=== PATIENT | female | born 1955 | race Two or more races ===

== ENCOUNTER 2017-12-26 12:12 | Observation (INO) | payer OTHER ==
--- NOTE | 2017-12-26 12:20 | PDOC ---
Attending Attestation - HPI HPI: 12/26/17 13:59 The patient is a 61 year old female, with a significant past medical history of [place], blood clots, hypertension and Type II diabetes, who presents to the emergency department with left arm pain for approximately 1 month. The patient describes her pain as sharp, and states it radiates from the left shoulder to her chest and down her left arm. She reports associated numbness and tingling. She reports some shortness of breath, but denies any diaphoresis, palpitations, or lower extremity edema. She reports these symptoms are different from her previous [place]. She denies any fever, chills, headache, dizziness, or lightheadedness. Patient reports she was evaluated at a clinic earlier today for her symptoms, who noted concerning ECG changes. She reports receiving 325 ASA prior to arrival. She denies any recent travel, sick contacts, or trauma. Allergies: NKDA Past Surgical History: Cardiac Cathetarization, stents Social History: Non smoker. No ETOH or recreational drug use. 12/26/17 14:12 - Medical Decision Making 12/26/17 14:10 Documentation prepared by Marko Tenorio, acting as medical videographer for Meaghan Jolly MD. <Marko Tenorio - Last Filed: 12/26/17 14:12> - Resident Resident Name: Fan Romero - ED Attending Attestation I have performed the following: I have examined & evaluated the patient, The case was reviewed & discussed with the resident, I agree w/resident's findings & plan, Exceptions are as noted - Physicial Exam PE: GENERAL: Awake, alert, and fully oriented, in no acute distress. Appears uncomfortable, mildly anxious. HEAD: No signs of trauma EYES: PERRLA, EOMI, sclera anicteric, conjunctiva clear ENT: Auricles normal inspection, hearing grossly normal, nares patent, oropharynx clear without exudates. Moist mucosa NECK: Normal ROM, supple, no lymphadenopathy, JVD, or masses LUNGS: Breath sounds equal, clear to auscultation bilaterally. No wheezes, and no crackles HEART: Tachycardic with normal S1 and S2, no murmurs, rubs or gallops ABDOMEN: Soft, nontender, normoactive bowel sounds. No guarding, no rebound. No masses EXTREMITIES: Normal range of motion, no edema. No clubbing or cyanosis. No cords, erythema, or tenderness NEUROLOGICAL: Cranial nerves II through XII grossly intact. Normal speech, normal gait. Motor and sensation intact. SKIN: Warm, Dry, normal turgor, no rashes or lesions noted. - Medical Decision Making Pt with multiple cardiac risk factors presents with cp, starting just FOOD COOKING MACHINE OPERATOR. She just recently returned from trip to [place] SOB, leg swelling. <Meaghan Jolly - Last Filed: 12/26/17 15:28>
[2017-12-26 12:25] VITALS: BMI 21.1
--- NOTE | 2017-12-26 12:43 | PDOC ---
History of Present Illness - General Stated Complaint: LT ARM PAIN Time Seen by Provider: 12/26/17 12:20 - History of Present Illness Initial Comments: The patient is a 61F with a history of HTN and T2DM who presents with one month of intermittent left arm pain with associated numbness and tingling. The pain is generally sharp, starts in her shoulder and radiates to her chest and down her left arm. She endorses intermittent shortness of breath as well. She denies ever having had this pain before, previous [place], blood clots, or previous cardiac cath/stenting. She denies PALMRE, vision changes, current chest pain, or recent trauma. Denies smoking. She was sent from clinic today with the above complaint and reported concerning ECG changes. She received 325mg ASA before arrival. 12/26/17 12:36 Past History - Past Medical History Allergies/Adverse Reactions: Allergies Allergy/AdvReac Type Severity Reaction Status Date / Time No Known Allergies Allergy Verified 04/01/12 11:22 Home Medications: Ambulatory Orders Amlodipine Besylate [Norvasc] 10 mg PO DAILY 04/01/12 Calcium Carb/Vit D3/Minerals [Calcium 600 + D Tablet] 1 each PO DAILY 04/01/12 Lisinopril [Prinivil] 40 mg PO DAILY 04/01/12 Atorvastatin Ca [Lipitor] 20 mg PO HS 12/26/17 Glyburide/Metformin HCl [Glucovance 2.5-500 mg Tablet] 1 each PO BID 12/26/17 Sitagliptin Phosphate [Januvia] 100 mg PO DAILY 12/26/17 Anemia: No Asthma: No Cancer: No Cardiac Disorders: No CVA: No COPD: No CHF: No Dementia: No Diabetes: Yes (NIDDM) GI Disorders: Yes (ESOPHAGEAL REFLUX) Disorders: No HTN: Yes Hypercholesterolemia: Yes Liver Disease: No Seizures: No Thyroid Disease: No - Surgical History Abdominal Surgery: No Appendectomy: No Cardiac Surgery: No Cholecystectomy: No Lung Surgery: No Neurologic Surgery: No Orthopedic Surgery: No - Suicide/Smoking/Psychosocial Hx Smoking History: Never smoked Hx Alcohol Use: No Drug/Substance Use Hx: No Substance Use Type: None Hx Substance Use Treatment: No Review of Systems - Review of Systems Comments:: Constitutional Symptoms: no fever, no weight loss, no weight gain, no fatigue, no malaise Eyes: no diplopia, no blurred vision, no redness, no loss of vision Ears, Nose, Mouth, Throat: no dysphagia, no odynophagia, no change in hearing, no rhinorrhea Cardiovascular: no current chest pain, +intermittent SOB, no palpitations; +hx of possible L carotid stenosis (not requiring sx) Respiratory: no cough, no hemoptysis Gastrointestinal: no NVD, no BPR, no dark stool, no constipation, no abdominal pain Genitourinary: no dysuria, no hematuria Musculoskeletal: +L shoulder pain, no weakness, trauma, or reduced ROM Integumentary: no rash, no wounds Neurological: +numbness/tingling LUE to shoulder, no weakness, no headache, no dizziness Psychiatric: no anxiety, no depression Endocrine: no polyuria, no polydipsia, no cold or heat intolerance Hematologic/Lymphatic: no bleeding, no bruising, no edema, no blood clots Allergic/Immunologic: no rash, no allergies, no fever, no chills 12/26/17 12:49 12/26/17 16:05 *Physical Exam - Vital Signs Last Vital Signs Temp Pulse Resp BP Pulse Ox 99.3 F 116 H 18 142/83 97 12/26/17 12:22 12/26/17 12:22 12/26/17 12:22 12/26/17 12:22 12/26/17 12:22 - Physical Exam Comments: GENERAL: Awake, alert, and fully oriented, in no acute distress HEAD: No signs of trauma, normocephalic, atraumatic EYES: PERRL, EOMI, sclera anicteric, conjunctiva clear ENT: Hearing grossly normal, nares patent, oropharynx clear without exudates. Moist mucosa NECK: Normal ROM, supple, no lymphadenopathy LUNGS: No distress, speaks full sentences, clear to auscultation bilaterally HEART: Tachycardic and regular rhythm, normal S1 and S2, no murmurs appreciated , peripheral pulses normal and equal bilaterally. ABDOMEN: Soft, nontender, normoactive bowel sounds. No guarding, no rebound. EXTREMITIES : Normal inspection, Normal range of motion, no edema. No clubbing or cyanosis. NEUROLOGICAL: Cranial nerves II through XII grossly intact. Normal speech, normal gait; LUE decreased sensation to light touch compared to RUE, sensation in LUE equal shoulder to wrist, mild difference in sensation hypothenar < thenar in L hand; Strength 5/5 throughout SKIN: Warm, Dry, normal turgor, no rashes or lesions noted 12/26/17 12:53 ED Treatment Course - LABORATORY CBC & Chemistry Diagram: 12/26/17 12:38 12/26/17 12:38 Medical Decision Making - Medical Decision Making The patient is a 61F with a history of HTN and T2DM who presents with 1 month of L shoulder pain that radiates to her chest and down her left arm, associated with LUE numbness/tingling and intermittent dyspnea concerning for ACS. She was sent from clinic where she reportedly had concerning ECG changes and was given 325mg ASA. 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 No prior ECG available for comparison 12/26/17 12:57 Patient's pain improved as well as her numbness/tingling in her LUE, though still present CXR without evidence of PNX, PNA, or mediastinal widening Trop I <0.02 No leukocytosis or anemia Hyperglycemia to 274 without anion gap 12/26/17 13:50 Plan to admit for observation for serial cardiac enzymes Q6H (next due 1829) and exams Will give therapeutic Lvx during stay, 1mg/kg SQ daily D-dimer negative Patient reports pain is improved, denies chest pain, no shortness of breath 12/26/17 16:06 Dispo: Observation for serial enzymes and exams *DC/Admit/Observation/Transfer Diagnosis at time of Disposition: ACS (acute coronary syndrome) - Referrals - Patient Instructions - Post Discharge Activity
[2017-12-26 12:52] LABS: BASO % 0.8 % (0-2.0); EOS % 2.6 % (0-4.5); HEMATOCRIT 43.7 % (32.4-45.2); HEMOGLOBIN 14.8 GM/dL (10.7-15.3); LYMPH % 18.7 % (8-40); MCH 30.6 pg (25.7-33.7); MEAN CELL VOLUME 90.1 fl (80-96); MEAN PLT VOLUME 8.3 fl (7.5-11.1); MONO % 6.6 % (3.8-10.2); NEUT % 71.3 % (42.8-82.8); PLATELET COUNT 346 K/MM3 (134-434); RBC 4.85 M/mm3 (3.60-5.2); RDW 13.1 % (11.6-15.6); WHITE BLOOD COUNT 10.3 K/mm3 (4.0-10.0)
[2017-12-26 13:04] LABS: INR 0.88 (0.82-1.09)
[2017-12-26 13:24] LABS: ALBUMIN 4.5 g/dl (3.4-5.0); ANION GAP 11 (8-16); BILIRUBIN,TOTAL 0.5 mg/dL (0.2-1.0); BLOOD UREA NITROGEN 10 mg/dL (7-18); CALCIUM 9.8 mg/dL (8.5-10.1); CHLORIDE 105 mmol/L (98-107); CO2 24 mmol/L (21-32); CREATININE 0.9 mg/dL (0.55-1.02); GLUCOSE,RANDOM 274 mg/dL (74-106); SGOT/AST 21 U/L (15-37); SGPT/ALT 40 U/L (12-78); SODIUM 140 mmol/L (136-145); TOT PROT 8.4 g/dl (6.4-8.2)
[2017-12-26 13:26] LABS: ALK PHOS 146 U/L (45-117)
[2017-12-26] MEDS ORDERED: ENOXAPARIN NA (PORCINE) 60 MG/0.6 ML DISP.SYRIN SQ SCH (14:45)
[2017-12-26] MEDS ORDERED: ENOXAPARIN NA (PORCINE) 60 MG/0.6 ML DISP.SYRIN SQ ONE (14:47)
--- NOTE | 2017-12-26 18:02 | HP ---
CHIEF COMPLAINT: left shoulder pain PCP: Dr. Shankar Stratton, cardiology HISTORY OF PRESENT ILLNESS: Patient is a 61 year old female with a significant past medical history of hypertension and diabetes mellitus. She presents to the ED today from the clinic for persistent left arm pain that has been going on and off since August 2017 of this year and worsening in the last month. She was sent from clinic today with left shoulder pain and ECG changes. She was given ASA 325mg prior to arrival. Patient states the left arm pain is sharp and starts at her shoulder and radiates to her chest down her left arm. When the pain is severe, she experiences intermittent shortness of breath, no chest pain. She denies any recent trauma, falls or any form of injury to her left shoulder. ER course was notable for: (1) d dimer 427 (2) chest xray no acute pathology (3) troponins negative x 1 (4) given therapeutic Lovenox in ER Recent Travel: traveled to 2 weeks ago PAST MEDICAL HISTORY: PAST SURGICAL HISTORY: Social History: Smoking: denies Alcohol: denies Drugs: denies Family History: Allergies No Known Allergies Allergy (Verified 04/01/12 11:22) HOME MEDICATIONS: Home Medications Medication Instructions Recorded Amlodipine Besylate [Norvasc] 10 mg PO DAILY 04/01/12 Calcium Carb/Vit D3/Minerals 1 each PO DAILY 04/01/12 [Calcium 600 + D Tablet] Lisinopril [Prinivil] 40 mg PO DAILY 04/01/12 Atorvastatin Ca [Lipitor] 20 mg PO HS 12/26/17 Glyburide/Metformin HCl 1 each PO BID 12/26/17 [Glucovance 2.5-500 mg Tablet] Sitagliptin Phosphate [Januvia] 100 mg PO DAILY 12/26/17 PHYSICAL EXAMINATION Vital Signs - 24 hr 12/26/17 12/26/17 12:22 15:18 Temperature 99.3 F Pulse Rate 116 H Pulse Rate [ 81 Apical] Respiratory 18 Rate Blood Pressure 142/83 O2 Sat by Pulse 97 Oximetry (%) GENERAL: Awake, alert, and fully oriented, in no acute distress. HEAD: Normal with no signs of trauma. EYES: Pupils equal, round and reactive to light, extraocular movements intact, sclera anicteric, conjunctiva clear. No lid lag. EARS, NOSE, THROAT: Ears normal, nares patent, oropharynx clear without exudates. Moist mucous membranes. NECK: Normal range of motion, supple without lymphadenopathy, JVD, or masses. LUNGS: Breath sounds equal, clear to auscultation bilaterally. HEART: nsr on burner hand ABDOMEN: Soft, nontender, not distended, normoactive bowel sounds, no guarding, no rebound, no masses. No hepatomegaly or splenomegaly. MUSCULOSKELETAL: limited ROM of left shoulder, pain on palpation of shoulder. No bony deformities or tenderness. No CVA tenderness. UPPER EXTREMITIES: limited ROM of left shoulder, equal strength bilaterally LOWER EXTREMITIES: 2+ pulses, warm, well-perfused. No calf tenderness. No peripheral edema. NEUROLOGICAL: Normal speech PSYCHIATRIC: Cooperative. Good eye contact. Appropriate mood and affect. SKIN: Warm, dry, normal turgor, no rashes or lesions noted, normal capillary refill. Laboratory Results - last 24 hr 12/26/17 12/26/17 12/26/17 12:38 12:38 12:38 WBC 10.3 H RBC 4.85 Hgb 14.8 Hct 43.7 MCV 90.1 MCH 30.6 MCHC 34.0 RDW 13.1 Plt Count 346 MPV 8.3 Absolute Neuts (auto) 7.4 Neutrophils % 71.3 Lymphocytes % 18.7 Monocytes % 6.6 Eosinophils % 2.6 Basophils % 0.8 Nucleated RBC % 0 PT with INR 10.00 INR 0.88 D-Dimer Sodium 140 Potassium 5.0 Chloride 105 Carbon Dioxide 24 Anion Gap 11 BUN 10 Creatinine 0.9 Creat Clearance w eGFR > 60 Random Glucose 274 H Calcium 9.8 Total Bilirubin 0.5 AST 21 ALT 40 Alkaline Phosphatase 146 H Creatine Kinase 81 Troponin I < 0.02 Total Protein 8.4 H Albumin 4.5 12/26/17 14:42 WBC RBC Hgb Hct MCV MCH MCHC RDW Plt Count MPV Absolute Neuts (auto) Neutrophils % Lymphocytes % Monocytes % Eosinophils % Basophils % Nucleated RBC % PT with INR INR D-Dimer 427 Sodium Potassium Chloride Carbon Dioxide Anion Gap BUN Creatinine Creat Clearance w eGFR Random Glucose Calcium Total Bilirubin AST ALT Alkaline Phosphatase Creatine Kinase Troponin I Total Protein Albumin ASSESSMENT/PLAN: Patient is a 61 year old female with a significant past medical history of hypertension and diabetes mellitus. She presents to the ED today from the clinic for persistent left arm pain that has been going on and off since August 2017 of this year and worsening in the last month. She was sent from clinic today with left shoulder pain and ECG changes. She was given ASA 325mg prior to arrival. In the ED she was given Lovenox 60mg. Cardiology Left shoulder pain/rule out ACS Trend troponins, monitor on tele. Noted to have ekg with sinus tachycardia and ST depressions in inferior and lateral leads. Will continue therapeutic Lovenox q 12 hours. Hypertension: continue home meds: Norvasc, Lisinopril Endocrine: Diabetes mellitus: BGMS, Insulin, diabetic diet. fen tolerating PO diabetic diet monitor electrolytes Visit type - Emergency Visit Emergency Visit: Yes ED Registration Date: 12/26/17 Care time: The patient presented to the Emergency Department on the above date and was hospitalized for further evaluation of their emergent condition. - New Patient This patient is new to me today: Yes Date on this admission: 12/28/17 - Critical Care Critical Care patient: No Hospitalist Screening - Colonoscopy Questionnaire Colonoscopy Questionnaire: Colonoscopy Questionnaire - Patient: 50 - 75 years old and never had a screening colonoscopy: Unknown History of colon or rectal polyps, or CA: Unknown History of IBD, Crohn's disease or UC: Unknown History of abdominal radiation therapy as a child: Unknown - Relative: 1 with colon or rectal CA, or polyps at age 60 or younger: Unknown Colon or rectal CA diagnosed at age 45 or younger: Unknown Multiple relatives with colon or rectal CA: Unknown - Outcome: Screening Result: Negative Screen
[2017-12-26] MEDS ORDERED: INSULIN (NOVOLOG) ASPART 100 UNITS/ML 10ML VIAL ONE (18:15)
[2017-12-26] MEDS: INSULIN SLIDING SCALE (NOVOLOG) 1 VIAL SQ SCH ×2 (18:17→23:07)
[2017-12-26] MEDS ORDERED: KETOROLAC TROMETHAMINE 10 MG TABLET PO PRN (18:30)
[2017-12-26] MEDS ORDERED: ACETAMINOPHEN 325 MG TABLET (FP) PO PRN (19:01)
[2017-12-26] MEDS ORDERED: ATORVASTATIN CA 20 MG TABLET (FP) PO SCH (22:00)
[2017-12-27] MEDS ORDERED: KETOROLAC TROMETHAMINE 10 MG TABLET PO SCH
[2017-12-27] MEDS: ENOXAPARIN NA (PORCINE) 60 MG/0.6 ML DISP.SYRIN SQ SCH ×2 (01:31→05:34)
[2017-12-27] MEDS: INSULIN SLIDING SCALE (NOVOLOG) 1 VIAL SQ SCH ×4 (06:07→22:31)
--- NOTE | 2017-12-27 08:35 | PN ---
Progress Note (short form) - Note Progress Note: IMP: 1. HTN/DM 2. Chronic left shoulder pain now with "pins and needle" /Parasthesia left hand 3. Chronic ALVAREZ 4. Abnl ECG, NSST changes REC: 1. ASA/Statin. Add beta kody. 2. Complete SHANAE with 3rd enzyme. Repeat ECG 3. Echo 4. If 3rd enzyme negative, would repeat non-invasive ischemic eval with stress MPI Symptoms are somewhat chronic and atypical for CAD. Consider Neuro eval and imaging of C-spine to explore other possibil. including Cervical Radiculopathy/ Carpal Tunnel etc Full Consult Dictated. Thank you
[2017-12-27 08:55] LABS: BASO % 1.1 % (0-2.0); EOS % 6.7 % (0-4.5); HEMATOCRIT 41.4 % (32.4-45.2); HEMOGLOBIN 14.3 GM/dL (10.7-15.3); LYMPH % 31.6 % (8-40); MCH 31.2 pg (25.7-33.7); MCHC 34.6 g/dl (32.0-36.0); MEAN CELL VOLUME 90.2 fl (80-96); MEAN PLT VOLUME 7.9 fl (7.5-11.1); MONO % 7.5 % (3.8-10.2); NEUT % 53.1 % (42.8-82.8); PLATELET COUNT 313 K/MM3 (134-434); RBC 4.59 M/mm3 (3.60-5.2); RDW 13.4 % (11.6-15.6)
--- NOTE | 2017-12-27 09:02 | PN ---
Physical Exam: SUBJECTIVE: Patient seen and examined at the bedside. Denies chest pain or shortness of breath. left arm pain improving. OBJECTIVE: for a stress test tomorrow, will make NPO at midnight Echo ordered Elevated lipid panel with triglycerides of 996, no abdominal pain, nausea or vomiting Vital Signs Period Temp Pulse Resp BP Sys/Field Pulse Ox Last 24 Hr 97.7 F-99.3 F 78-116 15-20 105-142/65-83 97-98 GENERAL: Awake, alert, and fully oriented, in no acute distress. HEAD: Normal with no signs of trauma. EYES: Pupils equal, round and reactive to light, extraocular movements intact, sclera anicteric, conjunctiva clear. No lid lag. EARS, NOSE, THROAT: Ears normal, nares patent, oropharynx clear without exudates. Moist mucous membranes. NECK: Normal range of motion, supple without lymphadenopathy, JVD, or masses. LUNGS: Breath sounds equal, clear to auscultation bilaterally. HEART: nsr on registered nurse cardiac ABDOMEN: Soft, nontender, not distended, normoactive bowel sounds, no guarding, no rebound, no masses. No hepatomegaly or splenomegaly. MUSCULOSKELETAL: left shoulder discomfort improving, pain on palpation of shoulder. No bony deformities or tenderness. No CVA tenderness. UPPER EXTREMITIES: limited ROM of left shoulder, equal strength bilaterally LOWER EXTREMITIES: 2+ pulses, warm, well-perfused. No calf tenderness. No peripheral edema. NEUROLOGICAL: Normal speech PSYCHIATRIC: Cooperative. Good eye contact. Appropriate mood and affect. SKIN: Warm, dry, normal turgor, no rashes or lesions noted, normal capillary refill. Laboratory Results - last 24 hr 12/26/17 12/26/17 12/26/17 12:38 12:38 12:38 WBC 10.3 H RBC 4.85 Hgb 14.8 Hct 43.7 MCV 90.1 MCH 30.6 MCHC 34.0 RDW 13.1 Plt Count 346 MPV 8.3 Absolute Neuts (auto) 7.4 Neutrophils % 71.3 Lymphocytes % 18.7 Monocytes % 6.6 Eosinophils % 2.6 Basophils % 0.8 Nucleated RBC % 0 PT with INR 10.00 INR 0.88 D-Dimer Sodium 140 Potassium 5.0 Chloride 105 Carbon Dioxide 24 Anion Gap 11 BUN 10 Creatinine 0.9 Creat Clearance w eGFR > 60 POC Glucometer Random Glucose 274 H Calcium 9.8 Total Bilirubin 0.5 AST 21 ALT 40 Alkaline Phosphatase 146 H Creatine Kinase 81 Troponin I < 0.02 Total Protein 8.4 H Albumin 4.5 12/26/17 12/26/17 12/26/17 14:42 18:11 18:26 WBC RBC Hgb Hct MCV MCH MCHC RDW Plt Count MPV Absolute Neuts (auto) Neutrophils % Lymphocytes % Monocytes % Eosinophils % Basophils % Nucleated RBC % PT with INR INR D-Dimer 427 Sodium Potassium Chloride Carbon Dioxide Anion Gap BUN Creatinine Creat Clearance w eGFR POC Glucometer [phone] Random Glucose Calcium Total Bilirubin AST ALT Alkaline Phosphatase Creatine Kinase Cancelled Troponin I Cancelled Total Protein Albumin 12/26/17 12/26/17 12/27/17 20:13 22:00 05:31 WBC RBC Hgb Hct MCV MCH MCHC RDW Plt Count MPV Absolute Neuts (auto) Neutrophils % Lymphocytes % Monocytes % Eosinophils % Basophils % Nucleated RBC % PT with INR INR D-Dimer Sodium Potassium Chloride Carbon Dioxide Anion Gap BUN Creatinine Creat Clearance w eGFR POC Glucometer 184 189 Random Glucose Calcium Total Bilirubin AST ALT Alkaline Phosphatase Creatine Kinase Troponin I < 0.02 Total Protein Albumin 12/27/17 08:45 WBC 7.0 RBC 4.59 Hgb 14.3 Hct 41.4 MCV 90.2 MCH 31.2 MCHC 34.6 RDW 13.4 Plt Count 313 MPV 7.9 Absolute Neuts (auto) 3.7 Neutrophils % 53.1 D Lymphocytes % 31.6 D Monocytes % 7.5 Eosinophils % 6.7 H D Basophils % 1.1 Nucleated RBC % 0 PT with INR INR D-Dimer Sodium Potassium Chloride Carbon Dioxide Anion Gap BUN Creatinine Creat Clearance w eGFR POC Glucometer Random Glucose Calcium Total Bilirubin AST ALT Alkaline Phosphatase Creatine Kinase Troponin I Total Protein Albumin Active Medications Generic Name Dose Route Start Last Admin Trade Name Freq PRN Reason Stop Dose Admin Acetaminophen 650 mg 12/26/17 19:01 12/26/17 23:08 Tylenol - PO 650 mg Q6H PRN Administration PAIN LEVEL 4 - 6 Amlodipine Besylate 5 mg 12/27/17 10:00 Norvasc - PO DAILY ANNELIESE Aspirin 81 mg 12/27/17 10:00 Asa - PO DAILY ANNELIESE Atorvastatin Calcium 20 mg 12/26/17 22:00 12/26/17 23:08 Lipitor - PO 20 mg HS ANNELIESE Administration Insulin Aspart 1 vial 12/26/17 16:30 12/27/17 06:07 Novolog Vial Sliding Scale - SQ 2 unit ACHS ANNELIESE Administration Protocol Ketorolac Tromethamine 10 mg 12/26/17 18:30 Toradol PO 12/31/17 18:29 Q6H PRN PAIN LEVEL 7 - 10 Lisinopril 40 mg 12/27/17 10:00 Prinivil PO DAILY ANNELIESE Metoprolol Succinate 12.5 mg 12/27/17 10:00 Toprol Xl - PO DAILY [facility] ASSESSMENT/PLAN: Patient is a 61 year old female with a significant past medical history of hypertension and diabetes mellitus. She presents to the ED today from the clinic for persistent left arm pain that has been going on and off since August 2017 of this year and worsening in the last month. She was sent from clinic today with left shoulder pain and ECG changes. She was given ASA 325mg prior to arrival. In the ED she was given Lovenox 60mg. Cardiology: Left shoulder pain/rule out ACS: Troponins negative x 3. For stress test and echo tomorrow. On admission, her ekg with sinus tachycardia and ST depressions in inferior and lateral leads. Hypertension: continue home meds: Norvasc, Lisinopril, Toprol xl HLD: Elevated Triglycerides @ 966, elevated lipid panel. Started on Lipitor 80mg and Trilplix 135mg. Patient states she has had elevated triglycerides in the past and was placed on statins. She has since stopped the medications. TSH , amylase and lipase within normal limits. Continue low cholesterol diet. Dietary teaching while inpatient. Endocrine: Diabetes mellitus: elevated BGMS, hmga1c 9.5. Patient to be taught how to use glucometer for home use. She will need close PCP follow up. Outpatient diabetic teaching would benefit her. Appears that she is not following a diabetic diet nor monitoring her blood sugars at home. fen tolerating PO diabetic diet monitor electrolytes prophy: ambulation Visit type - Emergency Visit Emergency Visit: Yes ED Registration Date: 12/26/17 Care time: The patient presented to the Emergency Department on the above date and was hospitalized for further evaluation of their emergent condition. - New Patient This patient is new to me today: No - Critical Care Critical Care patient: No - Discharge Referral Referred to [facility] Med P.C.: No
[2017-12-27 09:27] LABS: ALBUMIN 3.9 g/dl (3.4-5.0); ANION GAP 8 (8-16); BLOOD UREA NITROGEN 10 mg/dL (7-18); CALCIUM 9.2 mg/dL (8.5-10.1); CHLORIDE 101 mmol/L (98-107); CHOLESTEROL 257 mg/dL (50-200); CO2 27 mmol/L (21-32); CREATININE 0.9 mg/dL (0.55-1.02); MAGNESIUM 1.7 mg/dL (1.8-2.4); SGOT/AST 35 U/L (15-37); SGPT/ALT 44 U/L (12-78); SODIUM 136 mmol/L (136-145); TOT PROT 7.6 g/dl (6.4-8.2)
--- NOTE | 2017-12-27 09:27 | CONS ---
DATE OF CONSULTATION: 12/27/2017 Consultation requested by Charley Barragan NP for left arm pain. The patient is a 61-year-old female with a pertinent past medical history of diabetes, hypertension, and hyperlipidemia who was sent to the emergency room from her primary care clinic yesterday for left arm pain. The history was taken in [place]. The patient describes approximately 3 months of chronic left arm and shoulder pain. The pain initially started in her left shoulder and radiated downwards to her elbow. This has now dissipated. She now is experiencing left palm tingling/[id number] sensation. She denies chest pain. She denies exertional chest pain. She does have chronic exertional dyspnea of at least 3 months' duration. She had a stress test approximately 1 year ago, which she states was unremarkable; the results are not currently available for review. She denies palpitations, PND, orthopnea, edema. There is no history of syncope. She denies fevers, chills, cough. There are no other focal neurological deficits. PAST MEDICAL HISTORY: As outlined above and includes diabetes, hypertension, and hyperlipidemia. CURRENT MEDICATIONS: Tylenol 650 p.o. q.6 p.r.n. She was started on therapeutic doses of Lovenox to rule out ACS, which will now be discontinued. Amlodipine 10 mg p.o. daily; aspirin 81 mg p.o. daily; Lipitor 20 mg p.o. daily; insulin; Toradol p.r.n.; Prinivil 40 mg p.o. daily. ALLERGIES: None. FAMILY HISTORY: Patient states that her mother had coronary disease, but does not know the details. SOCIAL HISTORY: Nondrinker, nonsmoker. Lives with her son and [id number]. PHYSICAL EXAMINATION: General: She was alert and oriented, in no acute distress. Vital Signs: Afebrile, temperature 97.7, pulse 78. Telemetry shows sinus rhythm. Blood pressure 107/70, O2 saturation 98 on room air. HEENT: She is anicteric. Neck: Two-plus carotid pulses without bruits. Heart: S1, S2, regular. No murmurs. Chest: Clear to auscultation. Abdomen: Soft, nontender. Extremities: Warm, well-perfused with no edema and 2+ dorsalis pedis pulses. Her 12-lead EKG showed sinus tachycardia at 114 beats/min with inferior and anterior nonspecific ST changes. Chest x-ray was unremarkable. LABORATORIES: CBC showed a white count of 10.3, hematocrit of 43.7, platelets of 346. D-dimer was negative. Chemistry profile showed sodium of 140, potassium of 5, creatinine of 0.9. Normal LFTs. Normal CK. Troponin 0.02 and 0.02; awaiting the 3rd set. IMPRESSION: 1. Hypertension/diabetes. 2. Chronic left shoulder pain, now with "jnza-wih-[id number] sensation in the left palm;" paresthesia, left hand. 3. Chronic dyspnea on exertion. 4. Nonspecific ST changes on ECG while tachycardic. RECOMMENDATIONS: 1. Continue aspirin and statin. Will add low-dose beta kody. Will decrease amlodipine to 5 mg p.o. daily. 2. Complete rule out HI with 3rd enzyme this morning. Repeat ECG. 3. Plan for echocardiogram for assessment of wall motion, ejection fraction, and to rule out pericardial disease. 4. If her 3rd cardiac enzyme is negative, would repeat the noninvasive ischemic evaluation with an exercise nuclear stress test tomorrow morning. Her symptoms are chronic and somewhat atypical for coronary artery disease. Would also consider neurology evaluation and imaging of the C-spine to explore other possibilities, including cervical radiculopathy/carpal tunnel syndrome, etc. With her cardiac risk factors, a repeat ischemic evaluation is warranted as well. Thank you for the consultation. KATY LUCIANO M.D. [id number]
[2017-12-27 09:28] LABS: ALK PHOS 116 U/L (45-117); BILIRUBIN,TOTAL 0.4 mg/dL (0.2-1.0); HDL CHOLESTEROL 28 mg/dL (40-60)
[2017-12-27 09:34] LABS: TRIGLYCERIDES 996 mg/dL (35-160)
[2017-12-27] MEDS ORDERED: amLODIPine BESYLATE 10 MG TABLET (FP) PO SCH (10:00)
[2017-12-27] MEDS ORDERED: ATORVASTATIN CA 80 MG TABLET (FP) PO SCH (10:18)
[2017-12-27] MEDS ORDERED: MAGNESIUM OXIDE 400 MG TABLET (FP) PO ONE (10:36)
[2017-12-27 10:37] LABS: GLUCOSE,RANDOM 340 mg/dL (74-106)
[2017-12-27 10:41] LABS: AMYLASE 43 U/L (25-115)
[2017-12-27 10:43] LABS: LIPASE 231 U/L (73-393)
[2017-12-27] MEDS: amLODIPine BESYLATE 5 MG TABLET (FP) PO SCH (10:43)
[2017-12-27] MEDS: ASPIRIN 81 MG CHEWABLE TABLETS PO SCH (10:43)
[2017-12-27] MEDS: LISINOPRIL 20 MG TABLET (FP) PO SCH (10:43)
[2017-12-27] MEDS: metoPROLOL SUCCINATE 25 MG TAB.SR.24H (FP) PO SCH (10:43)
[2017-12-27] MEDS: FENOFIBRIC ACID 135 MG CAP PO SCH (10:44)
[2017-12-27] MEDS ORDERED: Insulin (LOG) Aspart 100 UNITS/ML VIAL SQ ONE (12:15)
[2017-12-27] MEDS ORDERED: PT OWN MED DRAWER 7, Y5N ONE ×3 (19:20→21:26)
[2017-12-27] MEDS ORDERED: INSULIN (LEVEMIR) 100 UNITS/ML UNITS SQ SCH (22:00)
[2017-12-28 06:18] LABS: EOS % 5.6 % (0-4.5); HEMATOCRIT 40.4 % (32.4-45.2); HEMOGLOBIN 13.8 GM/dL (10.7-15.3); LYMPH % 37.4 % (8-40); MCH 30.8 pg (25.7-33.7); MCHC 34.2 g/dl (32.0-36.0); MEAN CELL VOLUME 89.8 fl (80-96); MEAN PLT VOLUME 8.3 fl (7.5-11.1); MONO % 6.1 % (3.8-10.2); NEUT % 49.9 % (42.8-82.8); PLATELET COUNT 314 K/MM3 (134-434); RBC 4.49 M/mm3 (3.60-5.2); RDW 13.1 % (11.6-15.6); WHITE BLOOD COUNT 9.7 K/mm3 (4.0-10.0)
[2017-12-28] MEDS: INSULIN SLIDING SCALE (NOVOLOG) 1 VIAL SQ SCH ×2 (06:23→15:22)
[2017-12-28 07:04] LABS: ALBUMIN 3.7 g/dl (3.4-5.0); ANION GAP 8 (8-16); BLOOD UREA NITROGEN 15 mg/dL (7-18); CALCIUM 9.2 mg/dL (8.5-10.1); CHLORIDE 104 mmol/L (98-107); CO2 27 mmol/L (21-32); GLUCOSE,RANDOM 164 mg/dL (74-106); MAGNESIUM 1.7 mg/dL (1.8-2.4); POTASSIUM 5.2 mmol/L (3.5-5.1); SODIUM 139 mmol/L (136-145)
[2017-12-28 07:08] LABS: ALK PHOS 94 U/L (45-117); BILIRUBIN,TOTAL 0.6 mg/dL (0.2-1.0); CREATININE 0.8 mg/dL (0.55-1.02); SGOT/AST 32 U/L (15-37); SGPT/ALT 40 U/L (12-78); TOT PROT 7.1 g/dl (6.4-8.2)
--- NOTE | 2017-12-28 08:29 | PN ---
Progress Note, Physician Chief Complaint: feeling better TELE: NSR - Current Medication List Current Medications: Active Medications Acetaminophen (Tylenol -) 650 mg PO Q6H PRN PRN Reason: PAIN LEVEL 4 - 6 Last Admin: 12/26/17 23:08 Dose: 650 mg Amlodipine Besylate (Norvasc -) 5 mg PO DAILY [facility] Last Admin: 12/27/17 10:43 Dose: 5 mg Aspirin (Asa -) 81 mg PO DAILY [facility] Last Admin: 12/27/17 10:43 Dose: 81 mg Atorvastatin Calcium (Lipitor -) 80 mg PO HS [facility] Last Admin: 12/27/17 21:12 Dose: 80 mg Fenofibric Acid (Trilipix -) 135 mg PO DAILY [facility] Last Admin: 12/27/17 10:44 Dose: 135 mg Insulin Aspart (Novolog Vial Sliding Scale -) 1 vial SQ [facility]; Protocol Last Admin: 12/28/17 06:23 Dose: Not Given Insulin Detemir (Levemir Vial) 5 units SQ [facility] Last Admin: 12/27/17 22:31 Dose: Not Given Ketorolac Tromethamine (Toradol) 10 mg PO Q6H PRN PRN Reason: PAIN LEVEL 7 - 10 Stop: 12/31/17 18:29 Lisinopril (Prinivil) 40 mg PO DAILY [facility] Last Admin: 12/27/17 10:43 Dose: 40 mg Metoprolol Succinate (Toprol Xl -) 12.5 mg PO DAILY [facility] Last Admin: 12/27/17 10:43 Dose: 12.5 mg - Objective Vital Signs: Vital Signs Temperature 98.1 F 12/28/17 06:00 Pulse Rate 80 12/28/17 06:00 Respiratory Rate 20 12/28/17 06:00 Blood Pressure 123/72 12/28/17 06:00 O2 Sat by Pulse Oximetry (%) 98 12/27/17 22:00 Constitutional: Yes: No Distress Cardiovascular: Yes: Regular Rate and Rhythm Respiratory: Yes: CTA Bilaterally Gastrointestinal: Yes: Soft Edema: No Neurological: Yes: Alert, Oriented ...Motor Strength: WNL Labs: CBC, BMP 12/28/17 05:30 12/28/17 05:30 INR, PTT INR 0.88 (0.82-1.09) 12/26/17 12:38 Laboratory Tests 0712/26/17 12/27/17 12:38 20:13 08:45 WBC Hgb Plt Count Sodium Potassium BUN Creatinine Total Bilirubin AST ALT Alkaline Phosphatase Troponin I < 0.02 < 0.02 < 0.02 12/28/17 12/28/17 05:30 05:30 WBC 9.7 Hgb 13.8 Plt Count 314 Sodium 139 Potassium 5.2 H BUN 15 Creatinine 0.8 Total Bilirubin 0.6 AST 32 ALT 40 Alkaline Phosphatase 94 D Troponin I - ....Imaging EKG: Image Reviewed Assessment/Plan IMP: 1. HTN/DM/ HL 2. Chronic left shoulder pain now with "pins and needle" /Parasthesia left hand 3. Chronic ALVAREZ 4. Abnl ECG, NSST changes REC: 1. ASA/Statin. Add beta kody. 2. Cardiac enzymes negative. For stress MPI today. 3. Echo 4. Agree with Fenofibrate. Symptoms are somewhat chronic and atypical for CAD. Consider Neuro eval and imaging of C-spine to explore other possibil. including Cervical Radiculopathy/ Carpal Tunnel etc
--- NOTE | 2017-12-28 10:22 | EKG ---
Test Reason : Blood Pressure : / mmHG Vent. Rate : 083 BPM Atrial Rate : 083 BPM P-R Int : 116 ms QRS Dur : 082 ms QT Int : 378 ms P-R-T Axes : 079 008 035 degrees QTc Int : 444 ms NORMAL SINUS RHYTHM NORMAL ECG WHEN COMPARED WITH ECG OF 26-DEC-2017 12:22, NO SIGNIFICANT CHANGE WAS FOUND Confirmed by ABDIEL CHENG MD ([id number]) on 12/28/2017 10:22:18 AM Referred By: Aubrey GARG Confirmed By:ABDIEL CHENG MD
--- NOTE | 2017-12-28 10:34 | EKG ---
Test Reason : Blood Pressure : / mmHG Vent. Rate : 114 BPM Atrial Rate : 114 BPM P-R Int : 124 ms QRS Dur : 078 ms QT Int : 326 ms P-R-T Axes : 075 019 026 degrees QTc Int : 449 ms SINUS TACHYCARDIA NONSPECIFIC ST ABNORMALITY ABNORMAL ECG NO PREVIOUS ECGS AVAILABLE Confirmed by ABDIEL CHENG MD ([id number]) on 12/28/2017 10:34:30 AM Referred By: Confirmed By:ABDIEL CHENG MD
[2017-12-28 15:07] VITALS: BP 120/80; PULSE 88; TEMP 97.7
[2017-12-28] MEDS: ASPIRIN 81 MG CHEWABLE TABLETS PO SCH (15:07)
[2017-12-28] MEDS: amLODIPine BESYLATE 5 MG TABLET (FP) PO SCH (15:07)
[2017-12-28] MEDS: LISINOPRIL 20 MG TABLET (FP) PO SCH (15:09)
[2017-12-28] MEDS: metoPROLOL SUCCINATE 25 MG TAB.SR.24H (FP) PO SCH (15:09)
[2017-12-28] MEDS: FENOFIBRIC ACID 135 MG CAP PO SCH (15:10)
[2017-12-28] MEDS ORDERED: PT OWN MED DRAWER 7, Y5N ONE (15:14)
--- NOTE | 2017-12-28 15:49 | DS ---
Physical Exam: SUBJECTIVE: Patient seen and examined at the bedside. Feels well today, no pain. Not short of breath or chest pain. OBJECTIVE: Patient needs reinforcement of importance of monitoring her blood sugars and modifying her diet by reducing the amounts of fats and high cholesterol foods. Dietary teaching was done here and patient was started on Trilplix and Lipitor for elevated cholesterol/triglycerides. She is refusing home insulin and therefore her metformin was increased. A glucometer was called into her pharmacy and patient was taught how to use one during her stay. She has been instructed to record her blood sugars and record the numbers in a log book to bring to her primary care physician. She has a follow up appointment with her primary care physician for continued workup. Vital Signs Period Temp Pulse Resp BP Sys/Field Pulse Ox Last 24 Hr 97.7 F-98.7 F 73-88 18-20 103-123/62-84 98-98 PHYSICAL EXAM GENERAL: Awake, alert, and fully oriented, in no acute distress. HEAD: Normal with no signs of trauma. EYES: Pupils equal, round and reactive to light, extraocular movements intact, sclera anicteric, conjunctiva clear. No lid lag. EARS, NOSE, THROAT: Ears normal, nares patent, oropharynx clear without exudates. Moist mucous membranes. NECK: Normal range of motion, supple without lymphadenopathy, JVD, or masses. LUNGS: Breath sounds equal, clear to auscultation bilaterally. HEART: nsr on director of cardiac rehabilitation ABDOMEN: Soft, nontender, not distended, normoactive bowel sounds, no guarding, no rebound, no masses. No hepatomegaly or splenomegaly. MUSCULOSKELETAL: left shoulder discomfort improving, pain on palpation of shoulder. No bony deformities or tenderness. No CVA tenderness. UPPER EXTREMITIES: limited ROM of left shoulder, equal strength bilaterally LOWER EXTREMITIES: 2+ pulses, warm, well-perfused. No calf tenderness. No peripheral edema. NEUROLOGICAL: Normal speech PSYCHIATRIC: Cooperative. Good eye contact. Appropriate mood and affect. SKIN: Warm, dry, normal turgor, no rashes or lesions noted, normal capillary refill. LABS Laboratory Results - last 24 hr 12/27/17 12/27/17 12/27/17 12:05 17:18 22:30 WBC RBC Hgb Hct MCV MCH MCHC RDW Plt Count MPV Absolute Neuts (auto) Neutrophils % Lymphocytes % Monocytes % Eosinophils % Basophils % Nucleated RBC % Sodium Potassium Chloride Carbon Dioxide Anion Gap BUN Creatinine Creat Clearance w eGFR POC Glucometer 440 218 114 Random Glucose Calcium Magnesium Total Bilirubin AST ALT Alkaline Phosphatase Total Protein Albumin 12/28/17 12/28/17 12/28/17 05:30 05:30 06:10 WBC 9.7 RBC 4.49 Hgb 13.8 Hct 40.4 MCV 89.8 MCH 30.8 MCHC 34.2 RDW 13.1 Plt Count 314 MPV 8.3 Absolute Neuts (auto) 4.8 Neutrophils % 49.9 Lymphocytes % 37.4 Monocytes % 6.1 Eosinophils % 5.6 H Basophils % 1.0 Nucleated RBC % 0 Sodium 139 Potassium 5.2 H Chloride 104 Carbon Dioxide 27 Anion Gap 8 BUN 15 Creatinine 0.8 Creat Clearance w eGFR > 60 POC Glucometer 203 Random Glucose 164 H Calcium 9.2 Magnesium 1.7 L Total Bilirubin 0.6 AST 32 ALT 40 Alkaline Phosphatase 94 D Total Protein 7.1 Albumin 3.7 12/28/17 15:21 WBC RBC Hgb Hct MCV MCH MCHC RDW Plt Count MPV Absolute Neuts (auto) Neutrophils % Lymphocytes % Monocytes % Eosinophils % Basophils % Nucleated RBC % Sodium Potassium Chloride Carbon Dioxide Anion Gap BUN Creatinine Creat Clearance w eGFR POC Glucometer 211 Random Glucose Calcium Magnesium Total Bilirubin AST ALT Alkaline Phosphatase Total Protein Albumin HOSPITAL COURSE: Date of Admission:12/26/17 Date of Discharge: 12/28/17 ASSESSMENT/PLAN: Patient is a 62 year old female with a significant past medical history of hypertension and diabetes mellitus. She presents to the ED from the clinic for persistent left arm pain that has been going on and off since August 2017 of this year and worsening in the last month. Cardiology: Left shoulder pain/rule out ACS: ACS ruled out. Patient had negative troponins. Both echocardiogram and stress test were normal. Hypertension: continue home meds: Norvasc 5mg, Lisinopril 40mg, Toprol xl 12.5mg (toprol xl is a new medication, Norvasc was decreased to 5mg from her home dose of 10mg) HLD: Elevated Triglycerides @ 966, elevated lipid panel. Started on Lipitor 80mg and Trilplix 135mg. Continue low cholesterol diet. Patient to have repeat lipid panel with her primary care physician. Monitor LFTs outpatient. Endocrine: Diabetes mellitus: elevated BGMS, hmga1c 9.5. Patient to be taught how to use glucometer for home use. She is refusing insulin. Her metformin will be increased to metformin 850mg. She has been instructed to monitor her blood sugars with new glucometer device we called in to her pharmacy. She is to log her BGMs and bring log to her PCP on December 05. Patient discharge home with follow up appointment made for her for December 052017 @ 945 am. with her PCP. full code Minutes to complete discharge: 60 Discharge Summary Reason For Visit: Acute coronary syndrome Current Active Problems ACS (acute coronary syndrome) (Acute) Condition: Fair - Instructions Diet, Activity, Other Instructions: Mrs Smallwood: You were seen at [facility] for left arm pain and tingling. We have done an echocardiogram and stress test today. We also noted that your cholesterol levels, especially your tryglycerides are very high. Your blood sugars are also very high during your hospitalization. Here is what we recommend: * Left Arm Pain/Numbness/Tingling: Your cardiac tests are negative. We recommend that you follow up with a neurologist that takes your insurance to further explore why you continue to have this left arm pain. You may need an MRI of your spine. * Diabetes/High Blood sugars: Your blood sugars were high here in the hospital. We also noted that you need further teaching on maintaining a diabetic diet and recommend that you follow a low carb diabetic diet. A diabetic diet means eating the healthiest foods in moderate amounts and sticking to regular mealtimes. We recommend low fat and calories such as more vegetables, natural fruits and whole grains. We recommend that you see a public health representative as directed by your primary care physician. Keeping your blood sugars controlled is important as it can lead to complications such as infection and damaged blood vessels. We have called in a glucometer for your home use. Please check your blood sugars before meals and at bedtime and record your blood sugars in a log. I have increased your Metformin to help control your blood sugars. Bring this log with you to Dr. Mcclain office on December 05 at 945a.m. * High Triglycerides: We have started you on new medications called Trilipix 135mg daily and Lipitor 80mg at bedtime. Please maintain a low cholesterol diet and we recommend 30 minutes of exercise daily. Please have your triglycerides monitored with your primary care physician. Having high cholesterol puts you at high risk for heart problems and for strokes. We have made an appointment for you to see your doctor Dr. Mcclain on December 05 at 9:45. Please bring the records of your blood sugars to her on your visit. NEW MEDICATIONS: Toprol 12.5mg for blood pressure control, continue the amlodopine 5mg and Lisinopril 40mg daily (Your amlodpine was REDUCED FROM YOUR HOME DOSE OF AMLODOPINE 10MG) Trillpix 135mg daily - for high cholesterol Lipitor 80mg daily - for high cholesterol Aspirin 81mg daily - for heart health and stroke prevention, take once per day Please call me with any questions that you may have Bernadette Parker, TRAY [facility] [phone] Referrals: Sathish Stratton MD [Staff Physician] - 2 Weeks Destiny Abel MD [Primary Care Provider] - (appointment made for you on January 05 @ 945a.m. Please bring your paper work and your recorded blood sugars. ) Disposition: HOME - Home Medications Comprehensive Discharge Medication List: Ambulatory Orders Amlodipine Besylate 12/27/17 Lisinopril 12/27/17 Miscellaneous Medical Supply [Glucometer Device] 1 each SQ ASDIR #1 kit [employer]isc[employer] Supply [Glucometer Test Strips #100] 1 each SQ ASDIR #1 box 12/27/17 Sitagliptin Phosphate [Januvia] 100 mg PO DAILY 12/27/17 metFORMIN HCL [Metformin HCl] 500 mg PO BID 12/27/17 Alcohol Antiseptic Pads [Alcohol Swabs] 1 each TP ACHS #100 med..pad 12/28/17 Lancets [Lancets Thin] 1 each MC ACHS #1 box 12/28/17 Metformin HCl 850 mg PO BID #60 tablet 12/28/17 Miscellaneous Medical Supply [Glucometer Device] 1 each SQ ASDIR #1 kit Miscellaneous Medical Supply [Glucometer Test Strips #100] 1 each SQ ASDIR #1 box 12/28/17 This patient is new to me today: No Emergency Visit: Yes ED Registration Date: 12/26/17 Care time: The patient presented to the Emergency Department on the above date and was hospitalized for further evaluation of their emergent condition. Critical Care patient: No - Discharge Referral Referred to [facility] No
[2017-12-28] MEDS ORDERED: MAGNESIUM OXIDE 400 MG TABLET (FP) PO ONE (16:28)
== END 2017-12-28 17:50 | disposition home or self-care (01) ==
LOC: JER 12:12 → JERBED 15:01 → J4W 20:08
PROVIDERS: ADMIT Internal Medicine; ATTEND Nurse Practitioner Family
PROC: 3E013GC Introduction of Other Therapeutic Substance into Subcutaneous Tissue, Percutaneous Approach (ICD-10-PCS; principal; 2017-12-26)
DX: I24.9 Acute ischemic heart disease, unspecified (principal); I10 Essential (primary) hypertension; E78.5 Hyperlipidemia, unspecified; E11.9 Type 2 diabetes mellitus without complications; K21.9 Gastro-esophageal reflux disease without esophagitis; M25.512 Pain in left shoulder; G89.29 Other chronic pain; R06.00 Dyspnea, unspecified; R94.31 Abnormal electrocardiogram [ECG] [EKG]; E78.1 Pure hyperglyceridemia; R79.9 Abnormal finding of blood chemistry, unspecified
CPT/HCPCS: 36415; 71045-TC-FY; 78452-TC; 80053; 80061; 82150; 82550; 82962; 83036; 83690; 83721; 83735; 84443; 84484; 85025; 85379; 85610; 93005; 93010; 93017; 93306-TC; 96372; 99284-25; A9502; C1887; G0378